=== PATIENT | male | born 1960 | race Caucasian/White ===

== ENCOUNTER 2017-12-10 16:16 | Emergency (ER) | payer OTHER ==
[~2017-12-10] VITALS: Ht 170.2 cm; Wt 68.0 kg
[~2017-12-10 16:16] MED LIST: Bactrim Ds Tab1 EACH PO; CEPH500 PO; Clotrim Antifun15 GM TP; Lotrimin AF90 GM TOP; TAMS.4ER PO
[2017-12-10] MEDS ORDERED: Naprosyn500 MG PO (18:23)
== END 2017-12-10 18:33 | disposition home or self-care (01) ==
LOC: ER 16:16
DX: S01.511A Laceration without foreign body of lip, initial encounter (principal); S00.81XA Abrasion of other part of head, initial encounter; M25.512 Pain in left shoulder; F17.210 Nicotine dependence, cigarettes, uncomplicated; Z59.0 Homelessness; Z79.899 Other long term (current) drug therapy; Y04.2XXA Assault by strike against or bumped into by another person, initial encounter
CPT/HCPCS: 96372; 99283; J1885

== ENCOUNTER 2019-01-21 17:39 | Emergency (ER) | payer OTHER ==
[~2019-01-21] VITALS: Ht 170.2 cm; Wt 72.6 kg
[~2019-01-21 17:39] MED LIST changes: +Naprosyn500 MG PO; +Vibramycin100 MG PO
== END 2019-01-21 19:50 | disposition left against medical advice (07) ==
LOC: ER 17:39
DX: Z53.21 Procedure and treatment not carried out due to patient leaving prior to being seen by health care provider (principal)
CPT/HCPCS: 99282

== ENCOUNTER 2021-06-09 20:25 | Emergency (ER) | payer OTHER ==
[~2021-06-09] VITALS: Ht 170.2 cm; Wt 72.6 kg
[~2021-06-09 20:25] MED LIST changes: +Keflex500 MG PO
[2021-06-09 20:55] LABS: BASOPHILS ABSOLUTE AUTO 0.04 K/mm3 (0.00-0.23); BASOPHILS PERCENT AUTO 0 % (0-2); EOSINOPHILS ABSOLUTE AUTO 0.07 K/mm3 (0.00-0.68); EOSINOPHILS PERCENT AUTO 1 % (0-6); Hematocrit 40.4 % (37.0-53.0); Hemoglobin 13.8 g/dL (13.5-17.5); IMMATURE GRAN ABSOLUTE AUTO 0.04 K/mm3 (0.00-0.10); IMMATURE GRAN PERCENT AUTO 0 % (0-1); LYMPHOCYTES ABSOLUTE AUTO 1.77 K/mm3 (0.84-5.20); LYMPHOCYTES PERCENT AUTO 13 % (21-46); MONOCYTES ABSOLUTE AUTO 1.38 K/mm3 (0.16-1.47); MONOCYTES PERCENT AUTO 10 % (4-13); Mean Corpuscular HGB 29.7 pg (26.0-34.0); Mean Corpuscular HGB Conc 34.2 g/dL (31.5-36.5); Mean Corpuscular Volume 87 fL (80-100); Mean Platelet Volume 11.1 fL (9.1-12.4); NEUTROPHILS PERCENT AUTO 77 % (41-73); Platelet Count 185 K/mm3 (150-400); RDW Standard Deviation 44.9 fL (35.1-46.3); Red Blood Cell Count 4.64 M/mm3 (4.30-5.90)
[2021-06-09 21:31] LABS: International Normalized Ratio 0.99; Prothrombin Time Results 10.4 Sec (9.7-11.5)
== END 2021-06-09 21:27 | disposition left against medical advice (07) ==
LOC: ER 20:25
PROVIDERS: Student in an Organized Health Care Education/Training Program
DX: N36.8 Other specified disorders of urethra (principal); F17.210 Nicotine dependence, cigarettes, uncomplicated; V19.9XXA Pedal cyclist (driver) (passenger) injured in unspecified traffic accident, initial encounter; Z53.21 Procedure and treatment not carried out due to patient leaving prior to being seen by health care provider
CPT/HCPCS: 71045; 72170; 85025; 85610; 85730; 99284-25

== ENCOUNTER 2021-08-10 23:13 | Emergency (ER) | payer OTHER ==
[~2021-08-10] VITALS: Ht 170.2 cm; Wt 72.6 kg
== END 2021-08-10 23:50 | disposition left against medical advice (07) ==
LOC: ER 23:13
DX: S61.411A Laceration without foreign body of right hand, initial encounter (principal); F17.210 Nicotine dependence, cigarettes, uncomplicated; W45.8XXA Other foreign body or object entering through skin, initial encounter
CPT/HCPCS: 99282